=== PATIENT | male | born 1995 | race Two or more races ===

== ENCOUNTER 2020-11-28 06:50 | Emergency (ER) | payer SELFPAY ==
[~2020-11-28] VITALS: Ht 180.3 cm; Wt 74.8 kg
--- NOTE | 2020-11-28 06:55 | NUR ---
PT [facility] AND [employer] PER RA, PT WAS FOUND BY [employer] NAKED IN THE [employer]. DENIES SI/HI. PT ADMITS TO LSD USE. PT NOW AWAKE, AAOX4. VITAL SIGNS STABLE. RESPIRATIONS EVEN AND UNLABORED. NO ACUTE DISTRESS NOTED AT THIS TIME. PLACED ON MONITOR, WILL CONTINUE TO MONITOR
--- NOTE | 2020-11-28 07:20 | NUR ---
RECEIVED REPORT FROM STEVEN NUNEZ FOR [facility]. PT IS AAOX4, NOT IN RESPIRATORY DISTRESS, V/S STABLE. KEPT RESTED AND COMFORTABLE, WILL CONTINUE TO MONITOR.
--- NOTE | 2020-11-28 07:33 | NUR ---
BREAKFAST TRAY PROVIDED.
[2020-11-28] MEDS ORDERED: OLANZAPINE 5 MG TABLET PO ONE (08:00)
[2020-11-28] MEDS ORDERED: OLANZAPINE 5 MG TABLET ONE (08:02)
--- NOTE | 2020-11-28 08:05 | NUR ---
ER PHLEB AT BEDSIDE FOR BLOOD DRAW.
[2020-11-28 08:21] LABS: BASOPHILS % (AUTO) 0.5 % (0.0-2.0); EOSINOPHILS % (AUTO) 0.4 % (0.0-6.0); HEMATOCRIT 46 % (39-51); HEMOGLOBIN 15.3 g/dL (13.5-17.5); LYMPHOCYTES % (AUTO) 14.1 % (20.0-44.0); MEAN CORPUSCULAR HGB CONC 33 g/dl (31.0-36.0); MEAN CORPUSCULAR VOLUME 92 fL (80-96); MONOCYTES # (AUTO) 0.5 /CMM (0.1-1.30); MONOCYTES % (AUTO) 6.8 % (2.0-12.0); NEUTROPHILS # (AUTO) 5.7 /CMM (1.8-8.9); NEUTROPHILS % (AUTO) 78.2 % (43.0-81.0); PLATELET COUNT (AUTO) 196 /CMM (150-450); RED BLOOD CELL COUNT(AUTO) 5.05 MIL/uL (4.5-6.0); WHITE BLOOD COUNT (AUTO) 7.3 K/uL (4.3-11.0)
[2020-11-28 08:55] LABS: ALANINE AMINOTRANSFERASE 29 U/L (12-78); ALBUMIN 3.6 g/dL (3.4-5.0); ALCOHOL, BLOOD < 3 mg/dL (0-0); ALKALINE PHOSPHATASE 70 U/L (46-116); ASPARTATE AMINOTRANSFERASE 22 U/L (15-37); BILIRUBIN,DIRECT 0.2 mg/dL (0.0-0.2); CALCIUM, SERUM 8.8 mg/dL (8.5-10.1); CARBON DIOXIDE 30 mmol/L (21-32); CHLORIDE 104 mmol/L (98-107); CREATININE 0.8 mg/dL (0.6-1.3); GLUCOSE 128 mg/dL (74-106); POTASSIUM 4.3 mmol/L (3.5-5.1); SODIUM SERUM 142 mmol/L (136-145); TOTAL PROTEIN, SERUM 6.9 g/dL (6.4-8.2); UREA NITROGEN, BLOOD 18 mg/dL (7-18)
--- NOTE | 2020-11-28 09:00 | NUR ---
URINAL GIVEN BUT UNABLE TO PROVIDE URINE SPECIMEN THIS TIME.
[2020-11-28 09:26] LABS: ACETAMINOPHEN 0 ug/ml (10-30)
--- NOTE | 2020-11-28 14:37 | NUR ---
AT BEDSIDE FOR EVAL.
[2020-11-28] MEDS ORDERED: OLANZAPINE 10 MG VIAL IM ONE ×2 (14:43→15:00)
--- NOTE | 2020-11-28 21:50 | NUR ---
Patient discharged to home in stable condition. Written and verbal after care instructions given. Patient verbalizes understanding of instruction.
[2020-11-28 21:51] VITALS: BP 120/67
== END 2020-11-28 21:51 | disposition home or self-care (01) ==
LOC: ER 06:53
DX: T40.8X1A Poisoning by lysergide [LSD], accidental (unintentional), initial encounter (principal); Y92.89 Other specified places as the place of occurrence of the external cause
CPT/HCPCS: 36415; 80048; 80076; 80299; 80320; 85025; 96372; 99285; J3490; G0480